=== PATIENT | female | born 1950 | race Caucasian/White ===

== ENCOUNTER 2017-05-22 10:13 | Observation (INO) | payer MEDICARE, OTHER ==
[2017-05-22 10:18] VITALS: BMI 25.6
--- NOTE | 2017-05-22 11:40 | ED PDOC ---
HPI: Psych/Substance Abuse Time Seen by Provider: 05/22/17 10:30 Chief Complaint (Nursing): Psychiatric Evaluation History Per: Patient Additional Complaint(s): Pt. states today she had a verbal altercation with her . States she accused him of cheating on her. States this made her very upset. States she wrote a note to her family saying that she wanted to hurt herself. States she took 6 324mg iron tablets in an attempt to hurt herself. Offers no complaints at this time. Denies nausea, vomiting, abdominal pain, chest pain, HI, hallucinations. Past Medical History Reviewed: Historical Data, Nursing Documentation, Vital Signs Vital Signs: Last Vital Signs Temp 99 F 05/22/17 10:18 Pulse 91 H 05/22/17 10:18 Resp 16 05/22/17 10:18 BP 172/92 H 05/22/17 10:18 Pulse Ox 97 05/22/17 10:18 - Medical History PMH: Arthritis Denies: Chronic Kidney Disease - Surgical History Surgical History: Tonsillectomy - Family History Family History: States: No Known Family Hx - Home Medications Home Medications: Ambulatory Orders Medication Instructions Recorded Calcium Carbonate [Calcium] 1 tab PO DAILY 07/25/16 Multivitamin [Multivitamins] 1 tab PO DAILY 07/25/16 - Allergies Allergies/Adverse Reactions: Allergies Allergy/AdvReac Type Severity Reaction Status Date / Time No Known Allergies Allergy Verified 05/22/17 10:23 Review of Systems ROS Statement: Except As Marked, All Systems Reviewed And Found Negative Physical Exam - Reviewed Nursing Documentation Reviewed: Yes Vital Signs Reviewed: Yes - Physical Exam Appears: Positive for: Well, Non-toxic, No Acute Distress Head Exam: Positive for: ATRAUMATIC, NORMAL INSPECTION, NORMOCEPHALIC Skin: Positive for: Normal Color, Warm. Negative for: Rash Eye Exam: Positive for: EOMI, Normal appearance, PERRL ENT: Positive for: Normal ENT Inspection Neck: Positive for: Normal, Painless ROM Cardiovascular/Chest: Positive for: Regular Rate, Rhythm Respiratory: Positive for: CNT, Normal Breath Sounds Gastrointestinal/Abdominal: Positive for: Normal Exam, Bowel Sounds, Soft. Negative for: Tenderness Back: Positive for: Normal Inspection Extremity: Positive for: Normal ROM Neurologic/Psych: Positive for: Alert, Oriented, Mood/Affect (calm, cooperative) - Laboratory Results Result Diagrams: 05/22/17 11:50 05/22/17 11:50 - ECG ECG: Positive for: Interpreted By Ma ECG Rhythm: Positive for: Sinus Rhythm. Negative for: ST/T Changes O2 Sat by Pulse Oximetry: 97 - Radiology X-Ray: Read By Radiologist (CXR) X-Ray Interpretation: No Acute Disease ED OBSERVATION Date of observation admission: 05/22/17 Time of observation admission: 11:41 - Observation admission statement Patient is being placed in observation because:: crisis eval - Progress Note Progress Note: 05/22/17 11:41 Labs ordered. Pt. placed on 1:1. Crisis evaluation ordered. Jenifer RN discussed case with [place], poison control, and recommends obtaining iron levels now and at 1600. 05/22/2017 13:50 Pending crisis evaluation. 05/22/2017 14:20 Evaluated by aquacultural worker supervisor who determined that [place]. [place] [facility] [place]. [place] be [place] [facility] 05/22/17 16:42 Pt. in on distress. Iron and Ferritin levels redrawn. 05/22/17 19:38 Pt. in no distress. [place] [facility] [place] Disposition - Clinical Impression Clinical Impression: Suicidal behavior - Patient ED Disposition Is Patient to be Admitted: Transfer of Care (Signed out to Jorge ULLOA [place] [facility] [place] - Disposition Disposition Time: 20:00 Condition: STABLE
[2017-05-22 11:47] LABS: RBC URINE 1 /hpf (0-3); URINE BILIRUBIN NEGATIVE (NEGATIVE); URINE BLOOD NEGATIVE (NEGATIVE); URINE COLOR COLORLESS (YELLOW); URINE GLUCOSE (UA) NEG (Normal); URINE KETONE NEGATIVE (NEGATIVE); URINE LEUKOCYTE ESTERASE NEG Leu/uL (Negative); URINE PROTEIN NEGATIVE (NEGATIVE); URINE UROBILINOGEN 0.2-1.0 mg/dL (0.2-1.0); WBC URINE < 1 /hpf (0-5)
[2017-05-22 12:09] LABS: BASO % 0.4 % (0.0-2.0); EOS % 0.6 % (0.0-4.0); HEMATOCRIT 37.2 % (34.0-47.0); LYMPH # 1.5 K/uL (1.0-4.3); LYMPH % 21.6 % (20.0-40.0); MEAN CELL VOLUME 94.4 fl (81.0-99.0); MEAN CORPUSCULAR HEMOGLOBIN 31.1 pg (27.0-31.0); MEAN CORPUSCULAR HGB CONC 32.9 g/dL (33.0-37.0); MEAN PLATELET VOLUME 9.8 fl (7.2-11.7); MONO # 0.4 K/uL (0.0-0.8); MONO % 6.2 % (0.0-10.0); NEUT # 4.8 K/uL (1.8-7.0); NEUT % 71.2 % (50.0-75.0); NRBC % 0.1 % (0.0-0.0); RED CELL DISTRIBUTION WIDTH 13.1 % (11.5-14.5); WHITE BLOOD COUNT 6.8 K/uL (4.8-10.8)
[2017-05-22 12:14] LABS: ALB/GLOB RATIO 1.4 (1.0-2.1); ALCOHOL SERUM < 10 mg/dl (0-10); ALKALINE PHOSPHATASE 70 U/L (38-126); ALT/SGPT 34 U/L (9-52); AST/SGOT 25 U/L (14-36); BILIRUBIN,TOTAL 0.5 mg/dl (0.2-1.3); BLOOD UREA NITROGEN 11 mg/dl (7-17); CALCIUM 9.9 mg/dL (8.4-10.2); CARBON DIOXIDE 25 mmol/L (22-30); CHLORIDE 107 mmol/L (98-107); GFR AFRICAN-AMERICAN > 60; GLUCOSE,RANDOM 136 mg/dL (65-105); IRON 72 ug/dL (37-170); POTASSIUM 4.5 MMOL/L (3.6-5.0); SODIUM 143 mmol/l (132-148); TOTAL PROTEIN 7.3 G/DL (6.3-8.2)
--- NOTE | 2017-05-22 13:15 | RAD ---
HISTORY: clearance COMPARISON: No prior. FINDINGS: LUNGS: No active pulmonary disease. PLEURA: No significant pleural effusion identified, no pneumothorax apparent. CARDIOVASCULAR: Normal. OSSEOUS STRUCTURES: No significant abnormalities. VISUALIZED UPPER ABDOMEN: Normal. OTHER FINDINGS: None. IMPRESSION: No active disease.
[2017-05-22 18:24] VITALS: BP 138/74; PULSE 78; RESP 17; TEMP 98.7
[2017-05-22 19:40] VITALS: O2SAT 97
--- NOTE | 2017-05-23 01:49 | ED PDOC ---
- Laboratory Results Result Diagrams: 05/22/17 11:50 05/22/17 11:50 - ECG O2 Sat by Pulse Oximetry: 97 - Progress ED Course And Treament: Case endorsed to loan underwriter from Olayinka ULLOA pending [facility] [place]. Patient evaluated by [facility] screener; does not meet criteria for commitment. Stable for discharge. Family at bedside. Information given for outpatient follow up. Return to ED for worsening/concerning symptoms. Disposition - Clinical Impression Clinical Impression: Depressive disorder - POA Present On Arrival: None - Disposition Disposition: Routine/Home Disposition Time: 02:57 Condition: STABLE
--- NOTE | 2017-05-23 11:24 | CARD ---
APPROVED REPORT EKG Measurement Heart [id number] <Conclusion> Normal sinus rhythm Possible Left atrial enlargement Borderline ECG
== END 2017-05-23 03:04 | disposition home or self-care (01) ==
LOC: H.ER 10:13 → H.EROBSV 11:16
PROVIDERS: ADMIT Emergency Medicine; ATTEND Emergency Medicine
DX: F32.9 Major depressive disorder, single episode, unspecified (principal); M19.90 Unspecified osteoarthritis, unspecified site
CPT/HCPCS: 36415; 71010; 80053; 81003; 82728; 83540; 85025; 93005; 99284; G0378; G0480